=== PATIENT | female | born 1940 | race Caucasian/White ===

== ENCOUNTER 2017-07-02 13:04 | Outpatient (CLI) | payer MEDICARE, OTHER ==
--- NOTE | 2017-07-02 14:28 | CT ---
CHEST CT WITHOUT CONTRAST: COMPARISON: 04/28/15, 02/02/16, 12/18/16. HISTORY: Followup lung nodule. TECHNIQUE: Chest CT without contrast is performed in the axial plane. Coronal reformatted images are submitted for interpretation. FINDINGS: Limited evaluation of the mediastinum due to lack of IV contrast. No mass, lymphadenopathy, or hemat kaye. There is no pericardial fluid. There are coronary artery calcifications. Atherosclerosis of a nonaneurysmal aorta. Calcified left hilar lymph nodes. Visualized upper solid organs are unremarkable. Trachea and central bronchi are patent. Stable minimal emphysematous changes in the upper lobes. St able pleural-based opacity along the left frontal lobe measuring 7 mm. Redemonstration of a well-cir cumscribed slightly mixed-density mass measuring 1.6 x 1.5 x 1.7 cm. On the very first comparison st udy, this mass measured 1.7 x 1.5 x 1.9 cm. No appreciable change. No new masses or nodules. No os seous abnormalities. IMPRESSION: Stable right upper lobe mass with greater than 2 years of stability. POS: RENATE
== END 2017-07-02 13:05 | disposition home or self-care (01) ==
LOC: CT 13:04
PROVIDERS: ATTEND Internal Medicine Critical Care Medicine
DX: R91.1 Solitary pulmonary nodule (principal); R91.8 Other nonspecific abnormal finding of lung field
CPT/HCPCS: 71250

== ENCOUNTER 2017-08-06 11:26 | Outpatient (CLI) | payer MEDICARE, OTHER | END 2017-08-06 11:27 | disposition home or self-care (01) | LOC: BICRAD 11:26 | PROVIDERS: ATTEND Physician Assistant | DX: M25.551 Pain in right hip (principal); M16.11 Unilateral primary osteoarthritis, right hip; M47.896 Other spondylosis, lumbar region; M43.16 Spondylolisthesis, lumbar region; M17.12 Unilateral primary osteoarthritis, left knee | CPT/HCPCS: 72100 ==

== ENCOUNTER 2017-10-05 12:40 | Outpatient (CLI) | payer MEDICARE, OTHER | END 2017-10-05 12:41 | disposition home or self-care (01) | LOC: BICMRI 12:40 | PROVIDERS: ATTEND Physical Medicine & Rehabilitation | DX: M79.604 Pain in right leg (principal); M47.896 Other spondylosis, lumbar region | CPT/HCPCS: 72148 ==

== ENCOUNTER 2020-07-28 13:37 | Outpatient (CLI) | payer MEDICARE, OTHER | END 2020-07-28 13:38 | disposition home or self-care (01) | LOC: BICRAD 13:37 | PROVIDERS: ATTEND Internal Medicine Critical Care Medicine | DX: R06.00 Dyspnea, unspecified (principal) | CPT/HCPCS: 71046 ==

== ENCOUNTER 2021-01-13 07:44 | Outpatient (CLI) | payer MEDICARE, OTHER | END 2021-01-13 07:45 | disposition home or self-care (01) | LOC: CT 07:44 | PROVIDERS: ATTEND Internal Medicine Critical Care Medicine | DX: R91.1 Solitary pulmonary nodule (principal); R91.8 Other nonspecific abnormal finding of lung field | CPT/HCPCS: 71250 ==

== ENCOUNTER 2022-05-16 12:24 | Outpatient (CLI) | payer MEDICARE, OTHER | END 2022-05-16 12:25 | disposition home or self-care (01) | LOC: RAD 12:24 | PROVIDERS: ATTEND Internal Medicine Critical Care Medicine | DX: R06.00 Dyspnea, unspecified (principal); R91.8 Other nonspecific abnormal finding of lung field | CPT/HCPCS: 71046 ==

== ENCOUNTER 2024-01-06 08:43 | Emergency (ER) | payer MEDICARE, OTHER ==
[2024-01-06] MEDS ORDERED: Famotidine/PF 20 mg/2ml Vial ONE (09:30)
[2024-01-06] MEDS ORDERED: Mag-Al 1200 mg/1200 mg/30 ML UDCUP ONE (09:30)
[2024-01-06 09:41] LABS: #Basophils 0.04 10x3/uL (0.0-0.2); %Basophils 0.3 % (0.0-1.0); %Eosinophils 3.6 % (0.0-10.0); %Lymphocytes 16.3 % (21.0-51.0); %Monocytes 11.2 % (0.0-10.0); %Neutrophils 67.6 % (42.0-75.0); Hematocrit 43.3 % (36.0-47.0); Hemoglobin 13.4 g/dL (12.0-16.0); Mean Corpuscular HGB CONC 30.9 g/dL (32.0-36.0); Mean Corpuscular Hemoglobin 26.4 pg (27.0-31.0); Mean Corpuscular Volume 85.4 fL (78.0-98.0); Mean Platelet Volume 11.3 fL (7.4-10.4); Platelet Count 164 10x3/uL (130-400); RBC Distribution Width 13.8 % (11.5-14.5); Red Blood Cell (RBC) Count 5.07 mill/uL (4.20-5.40)
[2024-01-06 09:57] LABS: ALT (SGPT) 8 U/L (8-55); AST (SGOT) 17 U/L (5-34); Albumin 3.9 g/dL (3.4-4.8); Alkaline Phosphatase 81 U/L (40-110); Anion Gap 13 mmol/L (10-20); BUN (Urea Nitrogen) 10 mg/dL (9.8-20.1); Bilirubin, Total 0.5 mg/dL (0.2-1.2); Calc. Creatinine Clearance 0 mL/min (70-130); Carbon Dioxide 24 mmol/L (23-31); Chloride 105 mmol/L (98-107); Estimated GFR 52; Glucose 112 mg/dL (83-110); Potassium 3.9 mmol/L (3.5-5.1); Protein, Total 6.9 g/dL (5.8-8.1); Sodium 138 mmol/L (136-145)
[2024-01-06 10:02] LABS: Troponin I Less than 0.010 ng/mL (< 0.028)
[2024-01-06 13:12] LABS: Troponin I 0.012 ng/mL (< 0.028)
== END 2024-01-06 14:02 | disposition home or self-care (01) ==
LOC: ERS 08:43
DX: R07.9 Chest pain, unspecified (principal); E78.00 Pure hypercholesterolemia, unspecified; I10 Essential (primary) hypertension; J44.9 Chronic obstructive pulmonary disease, unspecified; Z79.82 Long term (current) use of aspirin; Z79.899 Other long term (current) drug therapy
CPT/HCPCS: 71045; 80053; 83880; 84484 ×2; 85025; 85379; 93005; 96374; 99285; J3490; 36415

== ENCOUNTER 2024-05-02 13:11 | Outpatient (CLI) | payer MEDICARE | END 2024-05-02 13:12 | disposition home or self-care (01) | LOC: BICCT 13:11 | PROVIDERS: ATTEND Family Medicine | DX: M47.26 Other spondylosis with radiculopathy, lumbar region (principal); M51.16 Intervertebral disc disorders with radiculopathy, lumbar region; M48.061 Spinal stenosis, lumbar region without neurogenic claudication; M47.817 Spondylosis without myelopathy or radiculopathy, lumbosacral region; M51.379 Other intervertebral disc degeneration, lumbosacral region without mention of lumbar back pain or lower extremity pain; M48.07 Spinal stenosis, lumbosacral region | CPT/HCPCS: 72131 ==